=== PATIENT | female | born 1945 | race Caucasian/White ===

== ENCOUNTER → 2018-05-18 | Outpatient (CLI) | payer MEDICARE, OTHER ==
[~2018-05-18] MED LIST: ASCO-182 PO; BLAC40CA3 PO; CHOL100094 PO; CYCL10TA29 PO; FLAX100027 PO; IBUP-136 PO; IPRN ENA; KET10 PO; MELA1TAB23 PO; MULT-1335 PO; NIA100 PO; UBID30CA27 PO; [UNRECOGNIZED DRUG - CODE] PO; [UNRECOGNIZED DRUG - CODE] SL
--- NOTE | 2018-05-18 15:44 | RADIOLOGY IMAGING REPORT ---
FACILITY: [facility] - [place] PATIENT NAME: Kaila Chery : 1945 MR: [id number] V: [id number] EXAM DATE: ORDERING PHYSICIAN: LINDSEY MIX TECHNOLOGIST: Location: [facility] - [place] Patient: Kaila Chery : 1945 Visit/Account:[id number] Date of Sevice: 05/18/2018 EXAMINATION: CT of the Paranasal Sinuses HISTORY: Chronic sinus symptoms, nasal septum deviation TECHNIQUE: CT was performed through the paranasal sinuses without intravenous contrast administratio n. Coronal and sagittal reformatted images were generated. One of the following dose optimization techniques was utilized in the performance of this exam: autom ated exposure control; adjustment of the mA and/or kV according to patient size; or use of iterative reconstruction technique. Specific details can be referenced in the facility's radiology CT exam ope rational policy. COMPARISON: August 26, 2016 FINDINGS: Clear mastoid air cells and middle ear cavities. Clear sinuses. Unchanged mild rightward upper and mi ld leftward lower nasal septum deviation. Patent bilateral infundibula. There is focal thickening of the posterior right inferior turbinate measuring up to 2 cm in thickness , axial image 13. 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 Cataract postsurgical changes noted. The visible intracranial structures are normal. IMPRESSION: 1. Clear sinuses. 2. Unchanged mild nasal septum deviation. 3. Unchanged asymmetric focal thickening of the posterior aspect of the right inferior turbinate carley uring up to 2 cm in thickness which is favored to be benign given stability. Direct inspection may be warranted to exclude a focal mass in this area. 4. 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 Report Dictated By: Murray Greene MD at 05/18/2018 3:33 PM Report E-Signed By: Murray Greene MD at 05/18/2018 3:39 PM WSN:[id number]
== END ==
LOC: CT 01:01
PROVIDERS: ATTEND Otolaryngology
DX: J34.2 Deviated nasal septum (principal); J32.9 Chronic sinusitis, unspecified; M19.91 Primary osteoarthritis, unspecified site
CPT/HCPCS: 70486

== ENCOUNTER → 2018-05-19 | Outpatient (CLI) | payer MEDICARE, OTHER | LOC: AUD 08:30 | PROVIDERS: ATTEND Otolaryngology | DX: H90.3 Sensorineural hearing loss, bilateral (principal) | CPT/HCPCS: 92557; 92570 ==

== ENCOUNTER → 2018-06-28 | Outpatient (CLI) | payer MEDICARE, OTHER ==
[~2018-06-28] MED LIST changes: +MODA100T5 PO; +RED600CA15 PO; +VITA100014 PO
[2018-06-28 09:42] LABS: PLATELET COUNT, AUTOMATED 288 K/uL (150-450)
--- NOTE | 2018-06-28 14:28 | EKG ---
FACILITY: [facility] - [place] PATIENT NAME: JUNE OCHOA : [id number] MR: [id number] V: [id number] EXAM DATE: ORDERING PHYSICIAN: NO OTHER TECHNOLOGIST: PARK Test Reason : PRE OP Blood Pressure : / mmHG Vent. Rate : 068 BPM Atrial Rate : 068 BPM P-R Int : 214 ms QRS Dur : 068 ms QT Int : 398 ms P-R-T Axes : 019 077 058 degrees QTc Int : 423 ms Sinus rhythm with 1st degree AV block Abnormal ECG When compared with ECG of 06-JAN-2016 13:59, CO interval has increased Confirmed by FRANCY DÍAZ ([id number]) on 06/29/2018 6:33:37 AM Referred By: MAGDY Confirmed By:FRANCY DÍAZ
== END ==
LOC: RESP 08:39
PROVIDERS: ATTEND Nurse Practitioner Family
DX: Z01.818 Encounter for other preprocedural examination (principal); R94.31 Abnormal electrocardiogram [ECG] [EKG]
CPT/HCPCS: 36415; 82040; 82247; 82310; 82374; 82435; 82565; 82947; 84075; 84132; 84155; 84295; 84450; 84460; 84520; 85025; 93005

== ENCOUNTER 2018-07-04 02:32 | Day surgery (SDC) | payer MEDICARE, OTHER ==
[~2018-07-04] VITALS: Ht 157.5 cm; Wt 58.1 kg
[2018-07-04] MEDS: NORMOSOL R SOLN(*) 1000 ML BAG 1,000 ML IV PRN ×2 (09:57→11:50)
[2018-07-04] MEDS ORDERED: BACITRACIN OINT 15 GM TUBE TP ONE (10:01)
[2018-07-04] MEDS ORDERED: OXYMETAZOLINE SPRAY 15 ML BTL ONE (10:01)
[2018-07-04] MEDS ORDERED: NS(*) 0.9% 250 ML BAG 250 ML ONE (10:02)
[2018-07-04] MEDS ORDERED: LIDO/EPI 1% MDV 1:100,000 20ML INFIL ONE (10:02)
[2018-07-04 10:16] VITALS: BP 97/73
[2018-07-04] MEDS ORDERED: ceFAZolin(*) 2GM/D5W 50ML 50 ML IVPB ONE (10:25)
[2018-07-04] MEDS ORDERED: LIDOCAINE/SOD BICARB 8.4% SYR ID ONE (10:25)
[2018-07-04] MEDS ORDERED: MIDAZOLAM 2 MG/2 ML VIAL IVP PRN (10:25)
[2018-07-04] MEDS ORDERED: FAMOTIDINE 20 MG TAB PO ONE (10:25)
[2018-07-04] MEDS ORDERED: fentaNYL CITR 100 MCG/2 ML AMP ONE ×2 (10:33→11:35)
[2018-07-04] MEDS ORDERED: KETAMINE HCL-NS 50 MG/5 ML SYR ONE (10:33)
[2018-07-04] MEDS ORDERED: ONDANSETRON 4 MG/2 ML VIAL ONE (10:34)
[2018-07-04] MEDS ORDERED: DEXAMETHASONE SOD PHOS 10MG/ML ONE (10:34)
[2018-07-04] MEDS ORDERED: PROPOFOL EMUL(*) 10MG/ML 20 ML 20 ML ONE (10:34)
[2018-07-04] MEDS ORDERED: LIDOCAINE MPF 1% 5 ML VIAL ONE (10:34)
[2018-07-04] MEDS ORDERED: NS(*) 0.9% 100 ML BAG 100 ML ONE (11:06)
--- NOTE | 2018-07-04 11:47 | OPERATIVE REPORT 1 ---
EVENT DATE: July 04, 2018 SURGEON: Kunal Merlos MD ANESTHESIOLOGIST: Palomo Luna MD ANESTHESIA: LMA. PREOPERATIVE DIAGNOSIS 1. Nasal septal deviation. 2. Bilateral inferior turbinate hypertrophy. POSTOPERATIVE DIAGNOSIS 1. Nasal septal deviation. 2. Bilateral inferior turbinate hypertrophy. PROCEDURE PERFORMED 1. Septoplasty. 2. Submucous resection of the bilateral inferior turbinates. INDICATIONS Please refer to the preoperative note. DESCRIPTION OF PROCEDURE The patient was positively identified in the preoperative area. She was there alone. Risks again explained, including but not limited to bleeding, infection, nasal septal perforation, and those associated with anesthesia. She acknowledged understanding of those risks. She was then brought back to the operative suite, placed supine on the operative table and anesthesia was administered. Once asleep, the patient was positioned and then prepped and draped in the usual sterile fashion. I initially decongested the nose by injecting approximately 10 cc of 1% Lidocaine with epinephrine into the bilateral anterior nasal septal mucosa and along the face of the bilateral inferior turbinates. Both nasal cavities were subsequently packed with cottonoids containing Afrin solution. These were subsequently removed. A nasal endoscopy was performed. This was notable for a left inferior septal spur and a right septal deviation. A Giltner incision was made in the left anterior nasal septal mucosa. The subperichondrial flap was raised. An incision was then made into the anterior nasal septal cartilage approximately 5 mm posterior to the original Giltner incision. A contralateral flap was raised. The deviated portion of the patient's nasal septal cartilage and bone was then removed. the Giltner incision was then reapproximated with interrupted Chromic suture. I then addressed the inferior turbinates. A stab incision was made at the face of the left inferior turbinate. A Valley elevator was utilized to elevate the mucosa off the underlying bone. A submucous resection was then performed with the turbinate blade of toyaebrider. The stab incision was then cauterized with suction Bovie electrocautery. The contralateral inferior turbinate was addressed in a similar fashion. Bilateral nasal septal splints were then placed and secured to the columella-septal with a suture. The patient was then turned to anesthesia for emergence. ESTIMATED BLOOD LOSS 25 cc. COMPLICATIONS None. MTDD
[2018-07-04] MEDS ORDERED: HYDR-653 PO (11:51)
[2018-07-04] MEDS ORDERED: CEFU500T10 PO (11:53)
[2018-07-04 12:43] VITALS: BP 106/77
[2018-07-04 12:46] VITALS: BP 116/83
[2018-07-04] MEDS ORDERED: APAP/HYDROCODONE 325/5 TAB PO ONE (13:25)
--- NOTE | 2018-07-04 14:15 | NUR ---
1415- REVIEWED D/C INSTRUCTIONS WITH PT AND FRIEND, ALL QUESTIONS ANSWERED 1428- D/C IV WITH CATH INTACT, PRESSURE DRESSING APPLIED WITH TAPE AND GAUZE 1440- WHEEL CHAIRED PT OUT TO ER ENTRANCE AND INTO VEHICLE, PT HAS O2 SET UP AND ON AT 2LPM VIA OXY MASK. PT ACCOMPANIED BY JASWINDER LAWSON AND FRIEND ABDULAZIZ
--- NOTE | 2018-07-04 14:45 | NUR ---
1243- PT. RECEIVED FROM PACU VIA STRETCHER WITH THE SIDERAILS UP. SBAR RECEIVED FROM PO LAWSON. PT. STATES THAT SHE NEEDS TO USE THE RESTROOM SO ORTHOSTATICS PREFORMED. 1247- PT. TO THE BATHROOM. 1250- PT. O2 LOW SO PUT ON 2LPM OXYMASK. 1310- ROOM AIR TEST PREFORMED. PT. O2 DROPPED TO 85% SO RETURNED TO 2LPM AND PT. UP TO 95%. 1312- PT. GIVEN PUDDING AND WATER. 1315- DR. GERARD CALLED FOR O2 HOME ORDER. 1320- LINCARE CALLED FOR HOME O2. 1330- PT. GIVEN COFFEE. 1340- PT. TO THE RESTROOM AGAIN. 1350- LINCARE HERE TO GO OVER HOME O2. 1400- NORCO GIVEN TO PT. FOR PAIN AT 08/05. FRIEND CALLED TO COME GET HER FOR RIDE HOME. 1405- PT. GETTING DRESSED. 1410- FRIEND HERE AND SBAR GIVEN TO JASWINDER LAWSON.
== END 2018-07-04 12:45 | disposition home or self-care (01) ==
LOC: OR 02:32
PROVIDERS: ATTEND Otolaryngology
DX: J34.3 Hypertrophy of nasal turbinates (principal); J34.2 Deviated nasal septum; G47.33 Obstructive sleep apnea (adult) (pediatric)
CPT/HCPCS: 30520; 94667; A9270; J1100; J2001; J2405; J2704; J3010; J3490; J7050; J0690